=== PATIENT | male | born 1950 | race Caucasian/White ===

== ENCOUNTER 2017-12-02 09:27 | Emergency (ER) | payer MEDICARE ==
[2017-12-02] MEDS ORDERED: Dexamethasone 10 MG/ML VIAL ONE (09:47)
== END 2017-12-02 10:05 | disposition home or self-care (01) ==
LOC: SCSER 09:27
DX: J01.90 Acute sinusitis, unspecified (principal); J30.2 Other seasonal allergic rhinitis; E78.5 Hyperlipidemia, unspecified; I10 Essential (primary) hypertension; Z79.899 Other long term (current) drug therapy
CPT/HCPCS: 96372; J1100